=== PATIENT | female | born 1950 | race African-American/Black ===

== ENCOUNTER 2017-07-21 08:36 | Emergency (ER) | payer OTHER, MEDICAID ==
[2017-07-21 08:42] VITALS: BP 135/74; BMI 32.9
--- NOTE | 2017-07-21 09:28 | DR.GENAD ---
HPI - PCP Primary Care Physician: victor m - Complaint/Symptoms Chief Complaint:: patient stated she is here for what she thinks is pain in her right side on the rib area - Nurses notes reviewed Nurses Notes Review: Yes - Source History Provided: Patient - Mode of Arrival Mode of Arrival: Ambulatory - Timing Onset of Chief Complaint: 07/18/17 Came on: Suddenly - Duration Duration: Constant Duration: Days - Severity Severity: Moderate PMH - PMH Past Medical History: Yes Past Medical History: Anemia, Coronary Artery Disease, Hypertension, [place] Past Surgical History: Yes Surgical History: Angioplasty/Stents, Appendectomy - Family History History of Family Medical Conditions: Yes Family Medical History: Diabetes Mellitus, Cancer, Hypertension - Social History Does patient currently use any type of tobacco product: No Have you used tobacco products in the last 12 months: No Type of Tobacco Use: None Does any household member use tobacco: No Alcohol Use: None Do you use any recreational Drugs:: No Lives With: Family Lives Where: Home - infectious screening In the last 2 months have you had wt loss of >10#?: NO Have you had fever, night sweats or hemotysis?: No Have you traveled outside the country in the last 6 months?: No Isolation: Standard ROS - Review of Systems Constitutional: Weakness, Fatigue. negative: Chills, Fever Eyes: No Symptoms Reported. negative: Eye Pain, Discharge ENTM: No Symptoms Reported. negative: Ear Pain, Nose Discharge, Nose Congestion , Throat Pain Respiratoy: Non-Productive Cough, Short of Breath (onexersion) Cardiovascular: Chest Pain, Other (rt rib pain) Gastrointestinal/Abdominal: No Symptoms Reported. negative: Abdominal Pain, Diarrhea, Nausea, Vomiting Genitourinary: No Symptoms Reported. negative: Dysuria, Frequency, Hematuria Neurological: Headache, Weakness, Dizziness Musculoskeletal: Muscle Pain Integumentary: No Symptoms Reported Hematologic/Lymphatic: No Symptoms Reported Endocrine: No Symptoms Reported All Other Systems: Reviewed and Negative PE - Vital Signs Vitals: Temperature 98.5 F Pulse Rate 59 Respiratory Rate 16 Blood Pressure [Left Arm] 123/58 Blood Pressure 135/74 O2 Sat by Pulse Oximetry 100 - General Limitations: No Limitations General Appearance: Alert - Head Head Exam: Normal Inspection - Eyes Eye exam: Normal Appearance - ENT ENT Exam: Normal External Ear Exam External Ear Exam: Normal External Inspection TM/Canal Exam: Bilateral Normal Nose Exam: Normal Nose Exam Mouth Exam: Normal Inspection Throat Exam: Normal Inspection - Neck Neck Exam: Normal Inspection - Chest Chest Inspection: Symmetric Chest Wall Rise - Respiratory Respiratory Exam: Chest Wall Tenderness (rt chest) Respiratory Exam: Bilateral Clear to Auscultation - Cardiovascular Cardiovascular Exam: Regular Rate, Normal Rhythm, Normal Heart Sounds - Abdominal Exam Abdominal Exam: Normal Bowel Sounds, Soft. negative: Tenderness - Extremities Extremities Exam: Normal Inspection - Back Back Exam: Normal Inspection - Neurologic Neurological Exam: Alert, Oriented X3 - Psychiatric Psychiatric Exam: Normal Affect, Normal Mood - Skin Skin Exam: Normal Color MDM - Differential Diagnosis Differential Diagnosis: rib contusion, fracture, sinusitis, dizziness, ataxia Course - Treatment Treatment: see orders. - Education/Counseling Education/Counseling: Patient, Education Educated On: Treatment, Diagnosis ROR - Labs Reviewed Laboratory Results Reviewed?: Yes Result Diagrams: 07/21/17 09:35 07/21/17 09:35 Laboratory: WBC 8.9 X10^3/uL (3.6-10.0) 07/21/17 09:35 RBC 4.37 X10^6/uL (3.5-5.4) 07/21/17 09:35 Hgb 13.8 g/dL (12.0-16.0) 07/21/17 09:35 Hct 40.7 % (36.0-47.0) 07/21/17 09:35 MCV 93.1 fL (80.0-100.0) 07/21/17 09:35 MCH 31.7 pg (27.0-34.0) 07/21/17 09:35 MCHC 34.0 g/dL (33.0-35.0) 07/21/17 09:35 RDW 14.4 % (11.6-16.5) 07/21/17 09:35 Plt Count 397 X10^3/uL (150.0-450.0) 07/21/17 09:35 MPV 10.2 fL (7.4-11.0) 07/21/17 09:35 Neut % 83.2 % (42.0-75.0) H 07/21/17 09:35 Lymph % 7.7 % (21.0-51.0) L 07/21/17 09:35 [place] % 8.0 % (0.0-13.0) 08/26/17 09:35 Eos % 0.7 % (0.9-2.9) L 07/21/17 09:35 Baso % 0.4 % (0.2-1.0) 07/21/17 09:35 Neut # 7.4 x10^3/uL (2.2-4.8) H 07/21/17 09:35 Lymph # 0.7 X10^3/uL (1.3-2.9) L 07/21/17 09:35 [place] # 0.7 x10^3/uL (0.3-0.8) 07/21/17 09:35 Eos # 0.1 x10^3/uL (0.0-0.2) 07/21/17 09:35 Baso # 0.0 X10^3/uL (0.0-0.1) 07/21/17 09:35 Absolute Nucleated RBC 0.0 /100WBC 07/21/17 09:35 Sodium 138 mmol/L (136-145) 07/21/17 09:35 Corrected Sodium TNP 07/21/17 09:35 Potassium 4.3 mmol/L (3.5-5.1) 07/21/17 09:35 Chloride 103 mmol/L (98-107) 07/21/17 09:35 Carbon Dioxide 27.2 mmol/L (21-32) 07/21/17 09:35 BUN 19 mg/dL (7-18) H 07/21/17 09:35 Creatinine 1.11 mg/dL (0.55-1.02) H 07/21/17 09:35 Est GFR (MDRD) Af Amer > 60 (>60) 07/21/17 09:35 Est GFR (MDRD) Non-Af 52 (>60) L 07/21/17 09:35 Glucose 78 mg/dL (65-99) 07/21/17 09:35 Calcium 9.3 mg/dL (8.5-10.1) 07/21/17 09:35 Corrected Calcium TNP 07/21/17 09:35 Total Bilirubin 0.60 mg/dL (0.2-1.0) 07/21/17 09:35 AST 46 Units/L (15-37) H 07/21/17 09:35 ALT 33 Units/L (12-78) 07/21/17 09:35 Alkaline Phosphatase 77 Units/L (46-116) 07/21/17 09:35 Creatine Kinase 98 Units/L (26-192) 07/21/17 09:35 CK-MB (CK-2) < 1.0 ng/mL (0-4.0) 07/21/17 09:35 CK/CKMB % Calc 1.0 % (<4) 07/21/17 09:35 Troponin I < 0.02 ng/mL (0-1.5) 07/21/17 09:35 Total Protein 9.3 g/dL (6.4-8.2) H 07/21/17 09:35 Albumin 4.0 g/dL (3.4-5.0) 07/21/17 09:35 Globulin 5.3 g/dL (2.5-4.5) H 07/21/17 09:35 Albumin/Globulin Ratio 0.8 Ratio (1.1-2.1) L 07/21/17 09:35 - XRAY XRAY Interpreted by: Radiologist XRAY Findings: report discuss with patient. - EKG Rhythm: NSR (ekg noted) - Diagnosis Discharge Problem: Dizziness, Vertigo Closed rib fracture Qualifiers: Encounter type: initial encounter Rib fracture type: single rib Laterality: right Qualified Code(s): S22.31XA - Fracture of one rib, right side, initial encounter for closed fracture - Discharge Plan Condition: Stable Prescriptions: Ketorolac Tromethamine [Toradol Tab] 10 mg PO BID PRN #8 tab PRN Reason: Pain - Follow ups/Referrals Follow ups/Referrals: Alex López [Primary Care Provider] - 07/23/17 - Instructions Instructions: Rib Fracture, [id number], Dizziness, [id number] Additional Instructions: return to ed if worse.
[2017-07-21] MEDS ORDERED: TORADOL 60 MG VIAL IM ONE (09:32)
[2017-07-21] MEDS ORDERED: TORADOL 60 MG VIAL ONE (09:44)
[2017-07-21 09:59] LABS: BASOPHILS % (AUTO) 0.4 % (0.2-1.0); EOSINOPHILS # (AUTO) 0.1 x10^3/uL (0.0-0.2); EOSINOPHILS % (AUTO) 0.7 % (0.9-2.9); HEMATOCRIT 40.7 % (36.0-47.0); HEMOGLOBIN 13.8 g/dL (12.0-16.0); LYMPHOCYTES # (AUTO) 0.7 X10^3/uL (1.3-2.9); LYMPHOCYTES % (AUTO) 7.7 % (21.0-51.0); MEAN CORPUSCULAR HEMOGLOBIN 31.7 pg (27.0-34.0); MEAN CORPUSCULAR VOLUME 93.1 fL (80.0-100.0); MEAN PLATELET VOLUME 10.2 fL (7.4-11.0); MONOCYTES # (AUTO) 0.7 x10^3/uL (0.3-0.8); NEUTROPHILS # (AUTO) 7.4 x10^3/uL (2.2-4.8); NEUTROPHILS % (AUTO) 83.2 % (42.0-75.0); PLATELET COUNT 397 X10^3/uL (150.0-450.0); RED BLOOD COUNT 4.37 X10^6/uL (3.5-5.4); RED CELL DISTRIBUTION WIDTH 14.4 % (11.6-16.5); WHITE BLOOD COUNT 8.9 X10^3/uL (3.6-10.0)
--- NOTE | 2017-07-21 10:10 | CT ---
CT head without contrast Indication: Dizziness, confusion Comparison: None Technique: CT images of the head were obtained without contrast. Automatic exposure control was utili zed. Findings: There is no acute bleed, generalized or focal edema, or abnormal extra-axial collection. Th e ventricles are not significantly dilated. No acute skeletal abnormality is seen. The visualized par anasal sinuses and mastoid air cells are clear. Impression: No acute intracranial abnormality. Reported By:
--- NOTE | 2017-07-21 10:13 | RAD ---
Right-sided rib series with single view chest Indication: Right-sided chest pain Comparison: Chest radiograph 11/22/2015 Findings: Mild cardiac silhouette enlargement is unchanged. The lungs are grossly clear without overt edema or focal infiltrates. There is minimally displaced fracture of the anterolateral right 10th rib. No obvious destructive oss eous lesion identified. Impression: Acute appearing minimally displaced fracture of the anterolateral right 10th rib. Reported By:
[2017-07-21 10:22] LABS: BLOOD UREA NITROGEN 19 mg/dL (7-18); CALCIUM 9.3 mg/dL (8.5-10.1); CARBON DIOXIDE 27.2 mmol/L (21-32); CHLORIDE 103 mmol/L (98-107); CREATININE 1.11 mg/dL (0.55-1.02); GLUCOSE 78 mg/dL (65-99); SODIUM 138 mmol/L (136-145); TROPONIN I < 0.02 ng/mL (0-1.5); eGFR BLACK RACES > 60 (>60); eGFR NON BLACK RACES 52 (>60)
[2017-07-21 10:24] LABS: ALANINE AMINOTRANSFERASE 33 Units/L (12-78); ALKALINE PHOSPHATASE 77 Units/L (46-116); CREATINE KINASE 98 Units/L (26-192); CREATINE KINASE MB < 1.0 ng/mL (0-4.0); TOTAL PROTEIN 9.3 g/dL (6.4-8.2)
[2017-07-21 10:28] LABS: ASPARTATE AMINO TRANSFERASE 46 Units/L (15-37)
== END 2017-07-21 10:56 | disposition home or self-care (01) ==
LOC: ER 08:53
DX: S22.31XA Fracture of one rib, right side, initial encounter for closed fracture (principal); R42 Dizziness and giddiness; Y33.XXXA Other specified events, undetermined intent, initial encounter; Y92.9 Unspecified place or not applicable
CPT/HCPCS: 36415; 70450; 71111; 80053; 82550; 82553; 84484; 85025; 93005; 93010; 96372; 99283; J1885

== ENCOUNTER 2017-08-05 21:43 | Inpatient (IN) | payer OTHER, MEDICAID ==
--- NOTE | 2017-08-05 22:28 | DR.GENAD ---
HPI - PCP Primary Care Physician: victor m - HPI Comment HPI Comment: PAIN STARTED YESTERDAY AND RESOLVE WHEN PATIENT TOOK 3 TUMS. TONIGHT PAIN STARTED AGAIN. PAIN IS ALSO IN EPIIGASTRIC AREA. HISTORY CAD AND HAVE HAD HI IN THE PAST. PATIENT HAD [address] LAST NOVEMBER IN [facility] IN [place]. - Complaint/Symptoms Chief Complaint Doctors Comments: INTERMITTENT CHEST PAIN SINCE YESTERDAY. Chief Complaint:: patient stated she has been having epigastric pain since yesterday and took 3 tums and the pain went away. she started tonight so she decided to come to the hospital - Nurses notes reviewed Nurses Notes Review: Yes - Source History Provided: Patient - Mode of Arrival Mode of Arrival: Ambulatory - Timing Onset of Chief Complaint: 08/04/17 Came on: Suddenly - Duration Duration: Constant Duration: Days - Severity Severity: Moderate PMH - PMH Past Medical History: Yes Past Medical History: Anemia, Coronary Artery Disease, Hypertension, [place] Past Surgical History: Yes Surgical History: Angioplasty/Stents, Appendectomy - Family History History of Family Medical Conditions: Yes Family Medical History: Diabetes Mellitus, Cancer, Hypertension - Social History Does patient currently use any type of tobacco product: Yes Have you used tobacco products in the last 12 months: Yes Type of Tobacco Use: Cigarettes How many years tobacco product used: 30 Does any household member use tobacco: No Alcohol Use: None Do you use any recreational Drugs:: No Lives With: Family Lives Where: Home - infectious screening In the last 2 months have you had wt loss of >10#?: NO Have you had fever, night sweats or hemotysis?: No Have you traveled outside the country in the last 6 months?: No Isolation: Standard ROS - Review of Systems Constitutional: Weakness, Fatigue. negative: Chills, Fever Eyes: No Symptoms Reported. negative: Eye Pain, Discharge ENTM: No Symptoms Reported. negative: Ear Pain, Nose Discharge, Nose Congestion , Throat Pain Respiratoy: Non-Productive Cough, Short of Breath. negative: Productive Cough, Wheezing, Hemoptysis Cardiovascular: Chest Pain. negative: Edema, Palpitations, Syncope Gastrointestinal/Abdominal: Nausea. negative: Abdominal Pain, Diarrhea, Vomiting Genitourinary: No Symptoms Reported. negative: Dysuria, Frequency, Hematuria Neurological: Weakness. negative: Headache, Dizziness Musculoskeletal: No Symptoms Reported Integumentary: No Symptoms Reported Hematologic/Lymphatic: No Symptoms Reported Endocrine: No Symptoms Reported All Other Systems: Reviewed and Negative PE - Vital Signs Vitals: Temperature 98.7 F Pulse Rate 66 Respiratory Rate 18 Blood Pressure [Left Arm] 123/58 Blood Pressure 145/79 O2 Sat by Pulse Oximetry 98 - General Limitations: No Limitations General Appearance: Alert - Head Head Exam: Normal Inspection - Eyes Eye exam: Normal Appearance - ENT ENT Exam: Normal External Ear Exam External Ear Exam: Normal External Inspection TM/Canal Exam: Bilateral Normal Nose Exam: Normal Nose Exam Mouth Exam: Normal Inspection Throat Exam: Normal Inspection - Neck Neck Exam: Trachea Midline - Chest Chest Inspection: Symmetric Chest Wall Rise - Respiratory Respiratory Exam: Normal Lung Sounds Bilat Respiratory Exam: Bilateral Clear to Auscultation - Cardiovascular Cardiovascular Exam: Regular Rate, Normal Rhythm, Normal Heart Sounds - Abdominal Exam Abdominal Exam: Normal Bowel Sounds, Soft. negative: Tenderness - Extremities Extremities Exam: Normal Inspection - Back Back Exam: Normal Inspection - Neurologic Neurological Exam: Alert, Oriented X3 - Psychiatric Psychiatric Exam: Normal Affect, Normal Mood - Skin Skin Exam: Normal Color MDM - Differential Diagnosis Differential Diagnosis: CHEST PAIN Course - Treatment Treatment: SEE ORDERS. ASPRIN IN ED AND ONE S/L NTG RESOLVE CHEST PAIN. IN PEPCIF IN ED. - Consultation Consultation Comments: DISCUSS PATIENT WITH DR. BEATTY. HE WILL ADMIT PATIENT. - Education/Counseling Education/Counseling: Patient, Education Educated On: Treatment, Diagnosis ROR - Labs Reviewed Laboratory Results Reviewed?: Yes Result Diagrams: 08/05/17 22:45 08/05/17 22:45 Laboratory: WBC 12.9 X10^3/uL (3.6-10.0) H 08/05/17 22:45 RBC 4.04 X10^6/uL (3.5-5.4) 08/05/17 22:45 Hgb 12.7 g/dL (12.0-16.0) 08/05/17 22:45 Hct 37.1 % (36.0-47.0) 08/05/17 22:45 MCV 91.9 fL (80.0-100.0) 08/05/17 22:45 MCH 31.5 pg (27.0-34.0) 08/05/17 22:45 MCHC 34.3 g/dL (33.0-35.0) 08/05/17 22:45 RDW 14.2 % (11.6-16.5) 08/05/17 22:45 Plt Count 360 X10^3/uL (150.0-450.0) 08/05/17 22:45 MPV 10.1 fL (7.4-11.0) 08/05/17 22:45 Neut % 83.1 % (42.0-75.0) H 08/05/17 22:45 Lymph % 4.5 % (21.0-51.0) L 08/05/17 22:45 [place] % 10.6 % (0.0-13.0) 08/05/17 22:45 Eos % 1.4 % (0.9-2.9) 08/05/17 22:45 Baso % 0.4 % (0.2-1.0) 08/05/17 22:45 Neut # 10.7 x10^3/uL (2.2-4.8) H 08/05/17 22:45 Lymph # 0.6 X10^3/uL (1.3-2.9) L 08/05/17 22:45 [place] # 1.4 x10^3/uL (0.3-0.8) H 08/05/17 22:45 Eos # 0.2 x10^3/uL (0.0-0.2) 08/05/17 22:45 Baso # 0.1 X10^3/uL (0.0-0.1) 08/05/17 22:45 Absolute Nucleated RBC 0.1 /100WBC 08/05/17 22:45 Sodium 139 mmol/L (136-145) 08/05/17 22:45 Corrected Sodium TNP 08/05/17 22:45 Potassium 3.7 mmol/L (3.5-5.1) 08/05/17 22:45 Chloride 102 mmol/L (98-107) 08/05/17 22:45 Carbon Dioxide 30.6 mmol/L (21-32) 08/05/17 22:45 BUN 12 mg/dL (7-18) 08/05/17 22:45 Creatinine 1.09 mg/dL (0.55-1.02) H 08/05/17 22:45 Est GFR (MDRD) Af Amer > 60 (>60) 08/05/17 22:45 Est GFR (MDRD) Non-Af 53 (>60) L 08/05/17 22:45 Glucose 103 mg/dL (65-99) H 08/05/17 22:45 Calcium 8.9 mg/dL (8.5-10.1) 08/05/17 22:45 Corrected Calcium TNP 08/05/17 22:45 Total Bilirubin 0.40 mg/dL (0.2-1.0) 08/05/17 22:45 AST 26 Units/L (15-37) 08/05/17 22:45 ALT 31 Units/L (12-78) 08/05/17 22:45 Alkaline Phosphatase 85 Units/L (46-116) 08/05/17 22:45 Creatine Kinase 86 Units/L (26-192) 08/05/17 22:45 CK-MB (CK-2) < 1.0 ng/mL (0-4.0) 08/05/17 22:45 CK/CKMB % Calc 1.2 % (<4) 08/05/17 22:45 Troponin I 0.25 ng/mL (0-1.5) 08/05/17 22:45 B-Natriuretic Peptide 137 pg/mL (0-79) H 08/05/17 22:45 Total Protein 8.6 g/dL (6.4-8.2) H 08/05/17 22:45 Albumin 3.5 g/dL (3.4-5.0) 08/05/17 22:45 Globulin 5.1 g/dL (2.5-4.5) H 08/05/17 22:45 Albumin/Globulin Ratio 0.7 Ratio (1.1-2.1) L 08/05/17 22:45 - XRAY XRAY Interpreted by: Radiologist XRAY Findings: REPORT DISCUSS WITH PATIENT. - EKG Rhythm: NSR (EKG NOTED) - Diagnosis Discharge Problem: Chest pain Qualifiers: Chest pain type: unspecified Qualified Code(s): R07.9 - Chest pain, unspecified - Discharge Plan Disposition: ADMITTED INPATIENT Condition: Stable - Follow ups/Referrals - Instructions
[2017-08-05] MEDS ORDERED: PEPCID 20 MG IV PREMIX* 20 MG/50 ML BAG IV ONE ×2 (22:31→22:37)
[2017-08-05] MEDS ORDERED: NITROSTAT SL PRN (22:31)
--- NOTE | 2017-08-05 22:48 | RAD ---
Chest, one view Indication: Chest pain. Comparison: 07/21/2017 Findings: There is lung hypoinflation with interstitial crowding. Chronic interstitial changes of the lungs appear similar to prior. No convincing acute superimposed infiltrate or large effusion. Stable cardiac silhouette size. Impression: No acute chest process or significant change. Reported By:
[2017-08-05 22:56] LABS: BASOPHILS # (AUTO) 0.1 X10^3/uL (0.0-0.1); BASOPHILS % (AUTO) 0.4 % (0.2-1.0); EOSINOPHILS # (AUTO) 0.2 x10^3/uL (0.0-0.2); EOSINOPHILS % (AUTO) 1.4 % (0.9-2.9); HEMATOCRIT 37.1 % (36.0-47.0); HEMOGLOBIN 12.7 g/dL (12.0-16.0); LYMPHOCYTES # (AUTO) 0.6 X10^3/uL (1.3-2.9); LYMPHOCYTES % (AUTO) 4.5 % (21.0-51.0); MEAN CORPUSCULAR HEMOGLOBIN 31.5 pg (27.0-34.0); MEAN CORPUSCULAR HGB CONC 34.3 g/dL (33.0-35.0); MEAN CORPUSCULAR VOLUME 91.9 fL (80.0-100.0); MEAN PLATELET VOLUME 10.1 fL (7.4-11.0); MONOCYTES # (AUTO) 1.4 x10^3/uL (0.3-0.8); MONOCYTES % (AUTO) 10.6 % (0.0-13.0); NEUTROPHILS # (AUTO) 10.7 x10^3/uL (2.2-4.8); NEUTROPHILS % (AUTO) 83.1 % (42.0-75.0); PLATELET COUNT 360 X10^3/uL (150.0-450.0); RED BLOOD COUNT 4.04 X10^6/uL (3.5-5.4); RED CELL DISTRIBUTION WIDTH 14.2 % (11.6-16.5); WHITE BLOOD COUNT 12.9 X10^3/uL (3.6-10.0)
[2017-08-05] MEDS: ASPIRIN 81 MG CHEWTAB PO SCH (23:02)
[2017-08-05 23:11] LABS: BLOOD UREA NITROGEN 12 mg/dL (7-18); CALCIUM 8.9 mg/dL (8.5-10.1); CARBON DIOXIDE 30.6 mmol/L (21-32); CHLORIDE 102 mmol/L (98-107); CREATININE 1.09 mg/dL (0.55-1.02); SODIUM 139 mmol/L (136-145); TROPONIN I 0.25 ng/mL (0-1.5); eGFR BLACK RACES > 60 (>60); eGFR NON BLACK RACES 53 (>60)
[2017-08-05 23:15] LABS: B-TYPE NATRIURETIC PEPTIDE 137 pg/mL (0-79)
[2017-08-05 23:16] LABS: ALANINE AMINOTRANSFERASE 31 Units/L (12-78); ALBUMIN 3.5 g/dL (3.4-5.0); ALKALINE PHOSPHATASE 85 Units/L (46-116); ASPARTATE AMINO TRANSFERASE 26 Units/L (15-37); CKMB % 1.2 % (<4); CREATINE KINASE 86 Units/L (26-192); CREATINE KINASE MB < 1.0 ng/mL (0-4.0); TOTAL PROTEIN 8.6 g/dL (6.4-8.2)
[2017-08-06] MEDS ORDERED: PLAVIX PO ONE (00:32)
[2017-08-06] MEDS ORDERED: HEPARIN SODIUM IV PRN (00:37)
[2017-08-06] MEDS ORDERED: DEXTROSE IV PRN (00:37)
[2017-08-06] MEDS ORDERED: NS 500 ML IV 500 ML IV ONE (01:36)
[2017-08-06] MEDS ORDERED: HEPARIN SODIUM INJ 5000 UNITS ONE (01:36)
[2017-08-06] MEDS ORDERED: HEPARIN SODIUM IN D5W 25,000 UNITS/500 ML BAG IV PRN (01:41)
[2017-08-06] MEDS ORDERED: HEPARIN SODIUM INJ 5000 UNITS IVP ONE ×2 (01:48→09:08)
[2017-08-06 02:30] VITALS: BMI 31.8
[2017-08-06 06:16] LABS: BASOPHILS # (AUTO) 0.1 X10^3/uL (0.0-0.1); BASOPHILS % (AUTO) 0.5 % (0.2-1.0); EOSINOPHILS # (AUTO) 0.2 x10^3/uL (0.0-0.2); EOSINOPHILS % (AUTO) 1.6 % (0.9-2.9); HEMOGLOBIN 11.3 g/dL (12.0-16.0); LYMPHOCYTES % (AUTO) 10.3 % (21.0-51.0); MEAN CORPUSCULAR HEMOGLOBIN 31.5 pg (27.0-34.0); MEAN CORPUSCULAR HGB CONC 34.2 g/dL (33.0-35.0); MEAN CORPUSCULAR VOLUME 92.1 fL (80.0-100.0); MEAN PLATELET VOLUME 10.6 fL (7.4-11.0); MONOCYTES # (AUTO) 1.1 x10^3/uL (0.3-0.8); MONOCYTES % (AUTO) 11.1 % (0.0-13.0); NEUTROPHILS # (AUTO) 7.4 x10^3/uL (2.2-4.8); NEUTROPHILS % (AUTO) 76.5 % (42.0-75.0); PLATELET COUNT 300 X10^3/uL (150.0-450.0); RED BLOOD COUNT 3.58 X10^6/uL (3.5-5.4); RED CELL DISTRIBUTION WIDTH 14.6 % (11.6-16.5); WHITE BLOOD COUNT 9.7 X10^3/uL (3.6-10.0)
[2017-08-06 06:43] LABS: ALANINE AMINOTRANSFERASE 26 Units/L (12-78); ALBUMIN 3.1 g/dL (3.4-5.0); ALKALINE PHOSPHATASE 72 Units/L (46-116); ASPARTATE AMINO TRANSFERASE 23 Units/L (15-37); BLOOD UREA NITROGEN 13 mg/dL (7-18); CALCIUM 8.5 mg/dL (8.5-10.1); CARBON DIOXIDE 29.3 mmol/L (21-32); CHLORIDE 105 mmol/L (98-107); COR CA(FOR HYPOALB) 9.2 mg/dL (8.5-10.1); CREATININE 0.91 mg/dL (0.55-1.02); SODIUM 140 mmol/L (136-145); TOTAL PROTEIN 6.9 g/dL (6.4-8.2); eGFR BLACK RACES > 60 (>60); eGFR NON BLACK RACES > 60 (>60)
[2017-08-06 06:59] LABS: CHOL/HDL RATIO 1.9 (0.0-5.0); CHOLESTEROL 131 mg/dL (0-200); CKMB % 1.5 % (<4); CREATINE KINASE 66 Units/L (26-192); CREATINE KINASE MB < 1.0 ng/mL (0-4.0); HDL CHOLESTEROL 70 mg/dL (40-60); TRIGLYCERIDES 30 mg/dL (0-150); TROPONIN I 0.26 ng/mL (0-1.5)
--- NOTE | 2017-08-06 08:13 | DR.H&P ---
H&P - History & Physical for Day of: H&P Date: 08/06/17 - Chief Complaint Chief Complaint: CHEST PAIN. - Allergies Allergies/Adverse Reactions: Allergies Allergy/AdvReac Type Severity Reaction Status Date / Time iodine Allergy Verified 08/05/17 22:36 peanut oil Allergy Verified 08/05/17 22:36 Penicillins Allergy Verified 08/05/17 22:36 - History of Present Illness History of Present Illness: IS A 67 YEAR OLD PATIENT OF OURS WHO PRESENTED TO THE EMERGENCY ROOM WITH COMPLAINTS OF CHEST PAIN. PATIENT REPORTED THAT PAIN BEGAN 1 DAY PRIOR TO ARRIVAL TO ER. SHE STATED THAT PAIN RESOLVED WHEN SHE TOOK 3 TUMS. WHEN PAIN RETURNED, PATIENT DECIDED TO COME TO THE ER. SHE REPORTED A HISTORY OF CAD AND DC WITH STENTS PLACED LAST NOVEMBER. SHE IS ALSO NOTED WITH COMPLAINTS OF EPIGASTRIC PAIN. ASSOCIATED SYMPTOMS INCLUDE NAUSEA, WEAKNESS, SHORTNESS OF BREATH, AND NON-PRODUCTIVE COUGH. ON ARRIVAL TO ER, VITALS WERE 98.7-66-18-98%-145/79. CBC WNL EXCEPT WBC 12.9. CMP WNL EXCEPT CREATININE 1.09, GFR 53, GLUCOSE 103, BNP 137, TOTAL PROTEIN 8.6, GLOBULIN 5.1. CARDIAC PROFILE WNL. EKG REPORTS SINUS RHYTHM WITH RATE OF 65. SHE WAS GIVEN ASPIRIN AND NITROSTAT IN ER WITH IMPROVEMENT IN PAIN NOTED. WE ADMITTED PATIENT FOR FURTHER TREATMENT AND EVALUATION. SHE WAS STARTED ON A HEPARIN DRIP, NITROSTAT Q5M X 3 PRN, PEPCID 20MG IV Q12H, AND NITROBID OINTMENT Q6H. WE PLAN TO OBTAIN SERIAL CARDIAC ENZYMES AND EKGs. WE WILL RECHECK AM LABS AND CONTINUE TO FOLLOW UP WITH PATIENT. - Past Medical History Past Medical History: Anemia, Angina, Coronary Artery Disease, Depression, Hypertension, [place] Additional Medical History: BREAST CANCER - Past Surgical History Surgical History: Angioplasty/Stents, Appendectomy, Mastectomy - Family History Family Medical History: Diabetes Mellitus, Cancer, Hypertension - Social History Does patient currently use any type of tobacco product: Yes Have you used tobacco products in the last 12 months: Yes Type of Tobacco Use: Cigarettes How many years tobacco product used: 30 Does any household member use tobacco: No Alcohol Use: None Drug Use: None - Review of Systems Constitutional: Weakness Eyes: No Symptoms Reported ENT: No Symptoms Reported Respiratory: Cough, Shortness of Breath (NON-PRODUCTIVE) Cardiovascular: Chest Pain, See HPI Gastrointestinal: Vomiting, Abdominal Pain (EPIGASTRIC PAIN) Genitourinary: No Symptoms Reported Musculoskeletal: No Symptoms Reported Skin: No Symptoms Reported Neurological: Weakness - Physical Exam Vital Signs: Temperature 98.1 F Pulse Rate [Left Brachial] 83 Pulse Rate 66 Respiratory Rate 18 Blood Pressure [Left Arm] 164/72 Blood Pressure 145/79 O2 Sat by Pulse Oximetry 97 Oriented: Normal Eyes: Normal Ear: Normal Nose: Normal Throat: Normal Respiratory: Clear Throughout Cardiovascular: Normal : Normal Auscultation: Bowel Sounds: Normal Palpation: Normal Tenderness: Normal Skin: Normal Musculoskeletal: Normal Psychiatric: Normal Mood Description: Calm Affect: Normal Speech Pattern: Clear - Assessment/Plan (1) Chest pain Qualifiers: Chest pain type: unspecified Qualified Code(s): R07.9 - Chest pain, unspecified Status: Acute Plan: ASPIRIN 324MG DAILY, HEPARIN DRIP, NITROSTAT SL Q5M PRN, NITRO-BID OINTMENT TD Q6H, SUPPLEMENTAL OXYGEN, TELEMETRY, SERIAL CARDIAC ENZYMES AND EKG
[2017-08-06] MEDS ORDERED: PERCOCET TAB 5/325 MG PO PRN (08:55)
[2017-08-06] MEDS ORDERED: PEPCID 20 MG IV PREMIX* 20 MG/50 ML BAG IV SCH (09:00)
[2017-08-06] MEDS: ASPIRIN 81 MG CHEWTAB PO SCH (09:21)
[2017-08-06] MEDS: NITRO-BID OINT 2% Multi-Dose tube TD SCH ×4 (09:55→20:59)
[2017-08-06 11:46] LABS: CKMB % 1.5 % (<4); CREATINE KINASE 67 Units/L (26-192); CREATINE KINASE MB < 1.0 ng/mL (0-4.0); TROPONIN I 0.33 ng/mL (0-1.5)
[2017-08-06] MEDS ORDERED: NITROSTAT SL PRN (13:43)
[2017-08-06] MEDS: PERCOCET TAB 5/325 MG PO PRN ×2 (15:14→20:56)
[2017-08-06] MEDS: LOPRESSOR TAB 25 MG PO SCH (20:56)
[2017-08-06] MEDS: PEPCID 20 MG IV PREMIX* 20 MG/50 ML BAG IV SCH (20:56)
[2017-08-06] MEDS ORDERED: KLONOPIN TAB 0.5 MG PO SCH (21:00)
[2017-08-06] MEDS ORDERED: LIPITOR TAB 40 MG PO SCH (21:00)
[2017-08-06] MEDS ORDERED: XANAX PO SCH (21:00)
[2017-08-07] MEDS: NITRO-BID OINT 2% Multi-Dose tube TD SCH ×2 (02:55→08:32)
[2017-08-07 05:18] LABS: BASOPHILS # (AUTO) 0.1 X10^3/uL (0.0-0.1); BASOPHILS % (AUTO) 2.5 % (0.2-1.0); EOSINOPHILS # (AUTO) 0.1 x10^3/uL (0.0-0.2); EOSINOPHILS % (AUTO) 1.9 % (0.9-2.9); HEMATOCRIT 35.3 % (36.0-47.0); HEMOGLOBIN 11.9 g/dL (12.0-16.0); LYMPHOCYTES # (AUTO) 0.5 X10^3/uL (1.3-2.9); LYMPHOCYTES % (AUTO) 8.6 % (21.0-51.0); MEAN CORPUSCULAR HEMOGLOBIN 31.6 pg (27.0-34.0); MEAN CORPUSCULAR HGB CONC 33.8 g/dL (33.0-35.0); MEAN CORPUSCULAR VOLUME 93.6 fL (80.0-100.0); MEAN PLATELET VOLUME 10.1 fL (7.4-11.0); MONOCYTES # (AUTO) 0.7 x10^3/uL (0.3-0.8); MONOCYTES % (AUTO) 11.8 % (0.0-13.0); NEUTROPHILS # (AUTO) 4.2 x10^3/uL (2.2-4.8); NEUTROPHILS % (AUTO) 75.2 % (42.0-75.0); PLATELET COUNT 294 X10^3/uL (150.0-450.0); RED BLOOD COUNT 3.77 X10^6/uL (3.5-5.4); RED CELL DISTRIBUTION WIDTH 14.4 % (11.6-16.5); WHITE BLOOD COUNT 5.5 X10^3/uL (3.6-10.0)
[2017-08-07 05:29] LABS: ALANINE AMINOTRANSFERASE 25 Units/L (12-78); ALKALINE PHOSPHATASE 73 Units/L (46-116); ASPARTATE AMINO TRANSFERASE 22 Units/L (15-37); BLOOD UREA NITROGEN 10 mg/dL (7-18); CALCIUM 8.7 mg/dL (8.5-10.1); CARBON DIOXIDE 29.3 mmol/L (21-32); CHLORIDE 107 mmol/L (98-107); COR CA(FOR HYPOALB) 9.5 mg/dL (8.5-10.1); CREATININE 0.73 mg/dL (0.55-1.02); SODIUM 141 mmol/L (136-145); TOTAL PROTEIN 7.6 g/dL (6.4-8.2); eGFR BLACK RACES > 60 (>60); eGFR NON BLACK RACES > 60 (>60)
[2017-08-07 06:56] LABS: GIANT PLATELET FEW
[2017-08-07 06:57] LABS: PLATELET MORPHOLOGY COMMENT NORMAL (NORMAL)
[2017-08-07] MEDS ORDERED: K-LYTE EFFERVESCENT PO PRN (07:08)
[2017-08-07] MEDS ORDERED: POTASSIUM CHLORIDE LIQ 20 MEQ UDC PO PRN (07:08)
[2017-08-07] MEDS ORDERED: K-RIDER 10 MEQ/NS 100 ML 10 MEQ/100 ML BAG IV PRN (07:08)
[2017-08-07] MEDS ORDERED: K-DUR TAB 20 MEQ PO PRN (07:08)
[2017-08-07 08:08] VITALS: BP 179/88
[2017-08-07] MEDS: LOPRESSOR TAB 25 MG PO SCH (08:29)
[2017-08-07] MEDS: PEPCID 20 MG IV PREMIX* 20 MG/50 ML BAG IV SCH (08:31)
[2017-08-07] MEDS ORDERED: NORVASC TAB 5 MG PO SCH (09:00)
[2017-08-07] MEDS ORDERED: ARIMIDEX PO SCH (09:00)
[2017-08-07] MEDS ORDERED: ASPIRIN 81 MG CHEWTAB PO SCH (09:00)
[2017-08-07] MEDS ORDERED: PROzac PO SCH (09:00)
[2017-08-07] MEDS ORDERED: MAALOX or MYLANTA PO PRN (09:45)
== END 2017-08-07 11:40 | disposition home or self-care (01) | DRG 313 ==
LOC: ER 21:43 → OBSVTOIN 08-06 00:23 → ICU 08-06 00:23 → MED/SURG 08-06 10:54
PROVIDERS: ADMIT Internal Medicine; ATTEND Internal Medicine
DX: R07.89 Other chest pain (principal); R10.13 Epigastric pain; I25.10 Atherosclerotic heart disease of native coronary artery without angina pectoris; I10 Essential (primary) hypertension; R94.31 Abnormal electrocardiogram [ECG] [EKG]
CPT/HCPCS: 36415; 71010; 80053; 80061; 82550; 82553; 83735; 83880; 84484; 85025; 85610; 85730; 93005; 93010; 96365; 96374; 99284; A4222; S0028; S0170; J1644

== ENCOUNTER 2017-11-13 14:56 | Emergency (ER) | payer OTHER, MEDICAID ==
[2017-11-13 15:13] VITALS: BP 155/71; BMI 33.3
[2017-11-13] MEDS ORDERED: TORADOL 60 MG VIAL IM ONE (15:30)
[2017-11-13] MEDS ORDERED: PEPCID TAB 20 MG PO ONE (15:30)
--- NOTE | 2017-11-13 15:31 | DR.GENAD ---
HPI - PCP Primary Care Physician: AP - HPI Comment HPI Comment: HISTORY BELOW. - Complaint/Symptoms Chief Complaint Doctors Comments: FELL LAST NIGHT NIGHT AND INJURED LEFT LEG. PATIENT IS IN WALKING BOAT FOR RECENT INJURY TO SAME LEG. HAD AKLE SURGERY AND IS STILL UNDERGOING PHYSICAL THERAPY. Chief Complaint:: PT C/O LT LEG PAIN. PT STATES SHE FELL LAST NIGHT AND HURT LT LEG. EMS STATES PT'S DAUGHTER STATES "PT WAS DRUNK LAST NIGHT AND FELL DOWN AND HURT HER LEG." - Nurses notes reviewed Nurses Notes Review: Yes - Source History Provided: Patient, EMS - Mode of Arrival Mode of Arrival: EMS - Timing Onset of Chief Complaint: 11/12/17 Came on: Suddenly - Duration Duration: Constant Duration: Hours - Severity Severity: Moderate PMH - PMH Past Medical History: Yes Past Medical History: Anemia, Angina, Coronary Artery Disease, Depression, Hypertension, [place] Past Surgical History: Yes Surgical History: Angioplasty/Stents, Appendectomy, Mastectomy - Family History History of Family Medical Conditions: Yes Family Medical History: Diabetes Mellitus, Cancer, Hypertension - Social History Does patient currently use any type of tobacco product: Yes Type of Tobacco Use: Cigarettes Does any household member use tobacco: Yes Alcohol Use: Heavy Do you use any recreational Drugs:: No Lives With: Family Lives Where: Home - infectious screening In the last 2 months have you had wt loss of >10#?: NO Have you had fever, night sweats or hemotysis?: No Have you traveled outside the country in the last 6 months?: No Isolation: Standard ROS - Review of Systems Constitutional: No Symptoms Reported Eyes: No Symptoms Reported ENTM: No Symptoms Reported Respiratoy: No Symptoms Reported Cardiovascular: No Symptoms Reported Gastrointestinal/Abdominal: No Symptoms Reported Genitourinary: No Symptoms Reported Neurological: No Symptoms Reported Musculoskeletal: Left, Leg, Ankle Integumentary: Change in Color, Other (SLIGHT SWELLING KNEELT.) Hematologic/Lymphatic: No Symptoms Reported Endocrine: No Symptoms Reported All Other Systems: Reviewed and Negative PE - Vital Signs Vitals: Temperature 98.2 F Pulse Rate 74 Respiratory Rate 18 Blood Pressure [Left Arm] 179/88 Blood Pressure 155/71 O2 Sat by Pulse Oximetry 97 - General Limitations: No Limitations General Appearance: Alert - Head Head Exam: Normal Inspection - Eyes Eye exam: Normal Appearance - ENT ENT Exam: Normal External Ear Exam External Ear Exam: Normal External Inspection TM/Canal Exam: Bilateral Normal Nose Exam: Normal Nose Exam Mouth Exam: Normal Inspection Throat Exam: Normal Inspection - Neck Neck Exam: Trachea Midline - Chest Chest Inspection: Symmetric Chest Wall Rise - Respiratory Respiratory Exam: Normal Lung Sounds Bilat Respiratory Exam: Bilateral Clear to Auscultation - Cardiovascular Cardiovascular Exam: Regular Rate, Normal Rhythm, Normal Heart Sounds - Abdominal Exam Abdominal Exam: Normal Bowel Sounds, Soft. negative: Tenderness - Extremities Extremities Exam: Normal Inspection (LEG IN WALKING BOAT. PULSES INTACT. SLIGHT ANKLE SWELLING PRESENT.), Tenderness - Back Back Exam: Normal Inspection - Neurologic Neurological Exam: Alert, Oriented X3 - Psychiatric Psychiatric Exam: Normal Affect, Normal Mood - Skin Skin Exam: Erythema MDM - Differential Diagnosis Differential Diagnosis: CONTUSION, STRAIN AND FRACTURE LEFT LEG. Course - Treatment Treatment: SEE ORDERS. - Education/Counseling Education/Counseling: Patient, Education Educated On: Diagnosis, Needs for Follow Up ROR - XRAY XRAY Interpreted by: Radiologist XRAY Findings: REPORT DISCUSS WITH PATIENT. - Diagnosis Discharge Problem: Contusion of left leg Qualifiers: Encounter type: initial encounter Qualified Code(s): S80.12XA - Contusion of left lower leg, initial encounter Strain of left knee and leg Qualifiers: Encounter type: initial encounter Qualified Code(s): S86.912A - Strain of unspecified muscle(s) and tendon(s) at lower leg level, left leg, initial encounter - Discharge Plan Disposition: 01 HOME, SELF-CARE Condition: Stable - Follow ups/Referrals Follow ups/Referrals: Alex López [Primary Care Provider] - 3 days - Instructions Instructions: Musculoskeletal Pain Additional Instructions: RETURN TO ED IF WORSE.
[2017-11-13] MEDS ORDERED: TORADOL 60 MG VIAL ONE (15:39)
[2017-11-13] MEDS ORDERED: PEPCID TAB 20 MG ONE (15:39)
--- NOTE | 2017-11-13 16:50 | RAD ---
Examination: Left lower leg, two views History: Trauma Findings: No acute fracture, or dislocation. Surgical screw-plate hardware is noted at the distal fib daron. Underlying fracture is not identified. There is soft tissue swelling involving the lower leg. Impression: Postsurgical findings distal fibula. No acute injury identified involving tibia or fibula . Reported By:
== END 2017-11-13 18:00 | disposition home or self-care (01) ==
LOC: ER 14:58
DX: S80.12XA Contusion of left lower leg, initial encounter (principal); S86.912A Strain of unspecified muscle(s) and tendon(s) at lower leg level, left leg, initial encounter; W19.XXXA Unspecified fall, initial encounter; Y92.9 Unspecified place or not applicable
CPT/HCPCS: 73590; 96372; 99282; J1885